=== PATIENT | female | born 1990 | race African-American/Black ===

== ENCOUNTER 2018-10-01 13:27 | Emergency (ER) | payer SELFPAY ==
[2018-10-01] MEDS ORDERED: HYDROCODONE/APAP 7.5/325 MG TAB ONE (13:49)
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
[2018-10-01] MEDS ORDERED: IBUPROFEN 400 MG TAB ONE (15:22)
== END 2018-10-01 15:49 | disposition home or self-care (01) ==
LOC: ER 13:27
DX: S60.812A Abrasion of left wrist, initial encounter (principal); M79.642 Pain in left hand; V49.40XA Driver injured in collision with unspecified motor vehicles in traffic accident, initial encounter
CPT/HCPCS: 99284